=== PATIENT | female | born 1965 | race African-American/Black ===

== ENCOUNTER 2017-08-16 14:00 | Outpatient (RCR) | payer OTHER | END 2017-08-17 | LOC: PT 14:00 | PROVIDERS: ATTEND Specialist | DX: M17.0 Bilateral primary osteoarthritis of knee (principal); M25.562 Pain in left knee; M25.561 Pain in right knee; M62.81 Muscle weakness (generalized) ==

== ENCOUNTER 2017-09-16 13:00 | Outpatient (RCR) | payer OTHER | END 2017-09-17 | LOC: PT 13:00 | PROVIDERS: ATTEND Specialist | DX: M17.0 Bilateral primary osteoarthritis of knee (principal); M25.562 Pain in left knee; M25.561 Pain in right knee; M62.81 Muscle weakness (generalized) ==

== ENCOUNTER 2017-10-04 13:00 | Outpatient (RCR) | payer OTHER | END 2017-10-18 | LOC: PT 13:00 | PROVIDERS: ATTEND Specialist | DX: M17.0 Bilateral primary osteoarthritis of knee (principal) ==